=== PATIENT | male | born 1965 | race Caucasian/White ===

== ENCOUNTER 2024-07-04 22:30 | Inpatient (IN) | payer OTHER ==
[2024-07-04 22:52] VITALS: BMI 31.7
[2024-07-04] MEDS ORDERED: NICOTINE POLACRILEX 2 MG LOZENGE BC PRN (23:33)
[2024-07-04] MEDS ORDERED: P-EPHED 60MG/TRIPROLIDI 2.5MG TABLET PO PRN (23:33)
[2024-07-04] MEDS ORDERED: IBUPROFEN 400 MG TABLET (FP) PO PRN (23:33)
[2024-07-04] MEDS ORDERED: POLYETHYLENE GLYCOL (HEALTHYLAX) 3350 17 GM PACKET PO PRN (23:33)
[2024-07-04] MEDS ORDERED: NALOXONE HCL 0.4 MG/ML VIAL IM PRN (23:33)
[2024-07-04] MEDS ORDERED: MAGNESIUM HYDROX 2400MG/30ML ORAL SUSPENSION 30 ML CUP PO PRN (23:33)
[2024-07-04] MEDS ORDERED: IBUPROFEN 600 MG TABLET (FP) PO PRN (23:33)
[2024-07-04] MEDS ORDERED: LOPERAMIDE HCL 2 MG CAPSULE PO PRN (23:33)
[2024-07-04] MEDS ORDERED: ACETAMINOPHEN 325 MG TABLET (FP) PO PRN (23:33)
[2024-07-04] MEDS ORDERED: NICOTINE POLACRILEX 2 MG GUM BUC PRN (23:33)
[2024-07-04] MEDS ORDERED: NALOXONE (NARCAN) HCL 4 MG/0.1 ML SPRAY NS PRN (23:33)
[2024-07-04] MEDS ORDERED: MAG HYDROX/AL HYDROX/SIMETH 30 ML UNIT-DOSE CUP PO PRN (23:33)
[2024-07-04] MEDS ORDERED: guaiFENesin 600 MG TABLET.ER (FP) PO PRN (23:33)
[2024-07-04] MEDS ORDERED: BISMUTH SUBSALICYLATE 524 MG/30 ML PO PRN (23:33)
[2024-07-05] MEDS: ONDANSETRON *ODT* 4 MG TABLET SL PRN (00:30)
[2024-07-05] MEDS: cloNIDine HCL 0.1 MG TABLET PO ONE (00:30)
[2024-07-05] MEDS ORDERED: cloNIDine HCL 0.1 MG TABLET ONE (00:57)
[2024-07-05] MEDS: cloNIDine HCL 0.1 MG TABLET PO PRN (05:12)
[2024-07-05] MEDS: METHOCARBAMOL 500 MG TABLET PO PRN (05:12)
[2024-07-05] MEDS: hydrOXYzine PAMOATE 25 MG CAPSULE (FP) PO PRN (05:12)
[2024-07-05] MEDS: PRENATAL VITAMINS W/ FOLIC ACID TABLET (FP) PO SCH (09:45)
[2024-07-05 10:28] LABS: HEMATOCRIT 44.4 % (35.4-49); HEMOGLOBIN 15.2 GM/dL (11.7-16.9); MCH 26.6 pg (25.7-33.7); MCHC 34.3 g/dl (32.0-35.9); MEAN CELL VOLUME 77.6 fl (80-96); MEAN PLT VOLUME 8.9 fl (7.5-11.1); PLATELET COUNT 256 10^3/uL (134-434); RBC 5.73 M/mm3 (4.00-5.60); RDW 13.4 % (11.9-15.9); WHITE BLOOD COUNT 11.2 K/mm3 (4.0-10.0)
[2024-07-05 10:43] LABS: POTASSIUM 3.3 mmol/L (3.5-5.1)
[2024-07-05 10:45] LABS: ALBUMIN 3.3 g/dl (3.4-5.0); CALCIUM 8.8 mg/dL (8.5-10.1)
[2024-07-05 10:47] LABS: BLOOD UREA NITROGEN 8.7 mg/dL (7-18)
[2024-07-05 10:49] LABS: CREATININE 0.8 mg/dL (0.55-1.3)
[2024-07-05 10:50] LABS: BILIRUBIN,TOTAL 0.9 mg/dL (0.2-1)
[2024-07-05] MEDS: POTASSIUM CHLORIDE ORAL LIQUID 20 MEQ/15 ML PO ONE (14:47)
[2024-07-05] MEDS: PANTOPRAZOLE 20 MG TABLET PO SCH (14:47)
[2024-07-05] MEDS: LEVOTHYROXINE NA 100 MCG TABLET (FP) PO SCH (16:10)
[2024-07-05] MEDS: DICYCLOMINE HCL 10 MG CAPSULE PO PRN (20:32)
[2024-07-05] MEDS: BENZOCAINE/MENTHOL (CHLORASEPTIC ) LOZENGE MM PRN (20:34)
[2024-07-05] MEDS ORDERED: INSULIN (NOVOLOG) ASPART 100 UNITS/ML 10ML VIAL ONE (21:57)
[2024-07-05] MEDS: THIAMINE 100 MG TABLET PO SCH (21:58)
[2024-07-05] MEDS: hydrALAZINE HCL 50 MG TABLET (FP) PO SCH (21:59)
[2024-07-05] MEDS: ATORVASTATIN CA 10 MG TABLET (FP) PO SCH (21:59)
[2024-07-05] MEDS: POTASSIUM CHLORIDE ORAL LIQUID 20 MEQ/15 ML PO SCH (21:59)
[2024-07-05] MEDS: traZODone HCL 100 MG TABLET (FP) PO SCH (21:59)
[2024-07-05] MEDS: busPIRone HCL 10 MG TABLET (FP) PO SCH (21:59)
[2024-07-05] MEDS ORDERED: MELATONIN 5 MG TABLETS PO SCH (22:00)
[2024-07-05] MEDS: INSULIN (LEVEMIR) 100 UNITS/ML UNITS SQ SCH (22:03)
[2024-07-05] MEDS: INSULIN ASPART SLIDING SCALE (NOVOLOG) 1 VIAL SQ SCH (22:23)
[2024-07-05] MEDS: TRIMETHOBENZAMIDE HCL 200MG/2ML INJ IM ONE (23:48)
[2024-07-06] MEDS: BENZONATATE 200 MG CAPSULE PO PRN (03:14)
[2024-07-06] MEDS ORDERED: INSULIN (NOVOLOG) ASPART 100 UNITS/ML 10ML VIAL ONE ×2 (07:34→17:28)
[2024-07-06] MEDS: TAMSULOSIN HCL 0.4 MG CAP PO SCH (07:42)
[2024-07-06 09:23] LABS: BASO % 0.3 % (0-2.0); EOS % 0.4 % (0-4.5); HEMATOCRIT 42.5 % (35.4-49); HEMOGLOBIN 14.7 GM/dL (11.7-16.9); MCH 26.7 pg (25.7-33.7); MCHC 34.7 g/dl (32.0-35.9); MEAN PLT VOLUME 9.3 fl (7.5-11.1); MONO % 8.1 % (3.8-10.2); NEUT % 66.2 % (42.8-82.8); PLATELET COUNT 237 10^3/uL (134-434); RBC 5.52 M/mm3 (4.00-5.60); RDW 13.4 % (11.9-15.9); WHITE BLOOD COUNT 11.9 K/mm3 (4.0-10.0)
[2024-07-06 09:31] LABS: POTASSIUM 3.3 mmol/L (3.5-5.1)
[2024-07-06] MEDS: methaDONE HCL 10 MG TABLET (FOR DETOX USE ONLY) PO ONE (09:37)
[2024-07-06] MEDS: HYDROCHLOROTHIAZIDE 25 MG TABLET (FP) PO SCH (09:37)
[2024-07-06] MEDS: LISINOPRIL 5 MG TABLET PO SCH (09:37)
[2024-07-06 09:52] LABS: CALCIUM 8.7 mg/dL (8.5-10.1)
[2024-07-06 09:53] LABS: BLOOD UREA NITROGEN 9.2 mg/dL (7-18)
[2024-07-06 09:56] LABS: CREATININE 0.8 mg/dL (0.55-1.3)
[2024-07-06] MEDS: methaDONE HCL 10 MG TABLET PO ONE (15:23)
[2024-07-06] MEDS ORDERED: methaDONE HCL 10 MG TABLET PO PRN (16:47)
[2024-07-07 09:12] LABS: BASO % 0.3 % (0-2.0); EOS % 1.3 % (0-4.5); HEMATOCRIT 44.1 % (35.4-49); HEMOGLOBIN 15.1 GM/dL (11.7-16.9); LYMPH % 27.7 % (8-40); MCH 26.7 pg (25.7-33.7); MCHC 34.2 g/dl (32.0-35.9); MEAN CELL VOLUME 78.3 fl (80-96); MEAN PLT VOLUME 9.5 fl (7.5-11.1); MONO % 8.8 % (3.8-10.2); NEUT % 61.9 % (42.8-82.8); PLATELET COUNT 248 10^3/uL (134-434); RBC 5.63 M/mm3 (4.00-5.60); RDW 13.3 % (11.9-15.9); WHITE BLOOD COUNT 10.8 K/mm3 (4.0-10.0)
[2024-07-07] MEDS: methaDONE 40 MG, methaDONE 10 MG PO ONE (09:16)
[2024-07-07] MEDS ORDERED: INSULIN (NOVOLOG) ASPART 100 UNITS/ML 10ML VIAL ONE (11:31)
[2024-07-08] MEDS ORDERED: INSULIN (NOVOLOG) ASPART 100 UNITS/ML 10ML VIAL ONE ×2 (06:25→17:04)
[2024-07-08] MEDS: methaDONE 40 MG, methaDONE 20 MG PO ONE (09:17)
[2024-07-08] MEDS ORDERED: methaDONE HCL 10 MG TABLET (FOR DETOX USE ONLY) PO ONE (10:00)
[2024-07-09 06:11] VITALS: RESP 18
[2024-07-09] MEDS: TRIMETHOBENZAMIDE HCL 200MG/2ML INJ IM PRN (07:31)
[2024-07-09] MEDS ORDERED: INSULIN (NOVOLOG) ASPART 100 UNITS/ML 10ML VIAL ONE (07:46)
[2024-07-09 08:45] VITALS: BP 167/97; PULSE 92; TEMP 97.7
[2024-07-09] MEDS: methaDONE 40 MG, methaDONE 30 MG PO ONE (09:08)
[2024-07-09] MEDS ORDERED: PNEUMOC 20-VAL CONJ-DIP CRM/PF 0.5 ML SYRINGE IM ONE (12:00)
== END 2024-07-09 09:45 | disposition home or self-care (01) | DRG 774 ==
LOC: YASAS 22:30 → Y3N 23:26 → Y6N 23:41
PROVIDERS: ADMIT Allergy & Immunology; ATTEND Surgery
PROC: HZ2ZZZZ Detoxification Services for Substance Abuse Treatment (ICD-10-PCS; principal; 2024-07-04)
DX: F10.230 Alcohol dependence with withdrawal, uncomplicated (principal); F14.10 Cocaine abuse, uncomplicated; F17.210 Nicotine dependence, cigarettes, uncomplicated; F43.10 Post-traumatic stress disorder, unspecified; F32.9 Major depressive disorder, single episode, unspecified; I10 Essential (primary) hypertension; E03.9 Hypothyroidism, unspecified; E11.9 Type 2 diabetes mellitus without complications; E78.5 Hyperlipidemia, unspecified; M54.59 Other low back pain; G89.29 Other chronic pain; D72.829 Elevated white blood cell count, unspecified; E87.6 Hypokalemia; K21.9 Gastro-esophageal reflux disease without esophagitis; M25.561 Pain in right knee; M25.562 Pain in left knee; R26.2 Difficulty in walking, not elsewhere classified; Z99.89 Dependence on other enabling machines and devices; Z79.84 Long term (current) use of oral hypoglycemic drugs; Z56.0 Unemployment, unspecified
CPT/HCPCS: 36415; 80048; 80053; 80305; 82962; 83036; 84132; 85025; 85027; 86780; 93005; 93010; Q0162